=== PATIENT | female | born 1995 | race Caucasian/White ===

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

== ENCOUNTER 2019-05-25 23:49 | Emergency (ER) | payer OTHER ==
[2019-05-26 01:05] VITALS: BP 120/62; PULSE 106; TEMP 99.5; BMI 25.8
--- NOTE | 2019-05-26 01:22 | PDOC ---
*Physical Exam - Vital Signs Last Vital Signs Temp Pulse Resp BP Pulse Ox 99.5 F 106 H 19 120/62 97 05/25/19 23:55 05/25/19 23:55 05/25/19 23:55 05/25/19 23:55 05/25/19 23:55 Medical Decision Making - Medical Decision Making 05/26/19 01:22 Patient seen by the advanced practice provider under my direct supervision. Ancillary testing reviewed as necessary. I agree with plan as outlined by the advanced practice provider. *DC/Admit/Observation/Transfer Diagnosis at time of Disposition: Pharyngitis Qualifiers: Pharyngitis/tonsillitis etiology: unspecified etiology Qualified Code(s): J02.9 - Acute pharyngitis, unspecified - Discharge Dispostion Disposition: HOME Condition at time of disposition: Fair - Prescriptions Prescriptions: Amoxicillin - [Amoxicillin 500mg Capsule -] 500 mg PO BID #20 capsule - Referrals Referrals: Wiliam Galeana MD [Primary Care Provider] - Call tomorrow - Patient Instructions Printed Discharge Instructions: Sore Throat Additional Instructions: gargle with warm salty water take ibuprofen every 6 hours as needed for pain take tylenol every 4 hours as needed for pain throw away toothbrush in 3-4 days do not share cups or utensil with other Take amoxicillin as prescribed follow up with your doctor as soon as possible. Additional Instructions: Please call your personal physician to report your Emergency Department visit and to report your progress, if any. If there is no improvement in symptoms in 2 days call your physician. Return to the Emergency Department for any worsening symptoms. - Post Discharge Activity Forms/Work/School Notes: Back to Work
[2019-05-26] MEDS ORDERED: IBUPROFEN 600 MG TABLET (FP) PO ONE ×2 (01:28→01:57)
[2019-05-26] MEDS ORDERED: DEXAMETHASONE SOD PHOSPHATE 10 MG/1 ML VIAL IM ONE (01:28)
--- NOTE | 2019-05-26 01:46 | PDOC ---
History of Present Illness - General Chief Complaint: Sore Throat Stated Complaint: SORE THROAT & FEVER Time Seen by Provider: 05/26/19 01:11 History Source: Patient - History of Present Illness Initial Comments: 05/26/19 01:38 24 year old female with sore throat, chills x 2 days. " i feel like i have a fever. and my throat is swollen" denies NVD, abdominal painn urinary symptoms no pmhx Past History - Past Medical History Allergies/Adverse Reactions: Allergies Allergy/AdvReac Type Severity Reaction Status Date / Time No Known Allergies Allergy Verified 12/28/16 12:18 Home Medications: Ambulatory Orders Nitrofurantoin Monohyd/M-Cryst [Macrobid] 100 mg PO BID #10 capsule 12/28/16 Amoxicillin - [Amoxicillin 500mg Capsule -] 500 mg PO BID #20 capsule 05/26/19 Psychiatric Problems: Yes (ANXIETY) - Immunization History Immunization Up to Date: Yes - Suicide/Smoking/Psychosocial Hx Smoking History: Never smoked Number of Cigarettes Smoked Daily: 2 Information on smoking cessation initiated: No 'Breaking Loose' booklet given: 12/28/16 Hx Alcohol Use: No Drug/Substance Use Hx: No Substance Use Type: Marijuana Review of Systems - Review of Systems Able to Perform ROS?: Yes Is the patient limited Finnish proficient: No Constitutional: Yes: Fever HEENTM: Yes: Ear Pain, Throat Pain, Throat Swelling Respiratory: No: Symptoms reported, See HPI, Cough, Orthopnea, Shortness of Breath, SOB with Exertion, SOB at Rest, Stridor, Wheezing, Productive cough, Hemoptysis, Other Cardiac (ROS): No: Symptoms Reported, See HPI, Chest Pain, Edema, Irregular Heart Rate, Lightheadedness, Palpitations, Syncope, Chest Tightness, Other ABD/GI: No: Symptoms Reported, See HPI, Abdominal Distended, Abd. Pain w/ defecation, Blood Streaked Bowels, Constipated, Diarrhea, Difficulty Swallowing , Nausea, Poor Appetite, Poor Fluid Intake, Rectal Bleeding, Vomiting, Indigestion, Abdominal cramping, Tarry Stools, Other : No: Symptoms Reported, See HPI, Burning, Dysuria, Discharge, Frequency, Flank Pain, Hematuria, Incontinence, Pain, Urgency, Testicular Mass, Testicular Swelling, Lesions, Testicular Pain, Other *Physical Exam - Vital Signs Last Vital Signs Temp Pulse Resp BP Pulse Ox 99.5 F 106 H 19 120/62 97 05/25/19 23:55 05/25/19 23:55 05/25/19 23:55 05/25/19 23:55 05/25/19 23:55 - Physical Exam General Appearance: Yes: Appropriately Dressed HEENT: positive: Pharyngeal Erythema (with eexudate. no kissing tonsil) Cardiovascular: positive: Regular Rhythm, Regular Rate Gastrointestinal/Abdominal: positive: Normal Bowel Sounds, Soft Extremity: positive: Normal Capillary Refill, Normal Inspection, Normal Range of Motion Integumentary: positive: Dry, Warm Medical Decision Making - Medical Decision Making 05/26/19 03:46 A: viral pharyngitis P: rapid strep negative. will empirically treat. throat culture culture pendibng decadron *DC/Admit/Observation/Transfer Diagnosis at time of Disposition: Pharyngitis Qualifiers: Pharyngitis/tonsillitis etiology: unspecified etiology Qualified Code(s): J02.9 - Acute pharyngitis, unspecified - Discharge Dispostion Disposition: HOME Condition at time of disposition: Fair - Prescriptions Prescriptions: Amoxicillin - [Amoxicillin 500mg Capsule -] 500 mg PO BID #20 capsule - Referrals Referrals: Wiliam Galeana MD [Primary Care Provider] - Call tomorrow - Patient Instructions Printed Discharge Instructions: Sore Throat Additional Instructions: gargle with warm salty water take ibuprofen every 6 hours as needed for pain take tylenol every 4 hours as needed for pain throw away toothbrush in 3-4 days do not share cups or utensil with other Take amoxicillin as prescribed follow up with your doctor as soon as possible. Additional Instructions: Please call your personal physician to report your Emergency Department visit and to report your progress, if any. If there is no improvement in symptoms in 2 days call your physician. Return to the Emergency Department for any worsening symptoms. - Post Discharge Activity Forms/Work/School Notes: Back to Work
[2019-05-26] MEDS ORDERED: DEXAMETHASONE SOD PHOSPHATE 10 MG/1 ML VIAL ONE (01:57)
== END 2019-05-26 02:24 | disposition home or self-care (01) ==
LOC: JER 23:49
PROC: 3E023GC Introduction of Other Therapeutic Substance into Muscle, Percutaneous Approach (ICD-10-PCS; principal; 2019-05-25)
DX: J02.9 Acute pharyngitis, unspecified (principal); R50.9 Fever, unspecified
CPT/HCPCS: 87070; 87880; 96374; 99281-25; J1100

== ENCOUNTER 2022-07-11 09:25 | Inpatient (IN) | payer OTHER ==
[2022-07-11] MEDS: ELECTROLYTE-148 SOLN 1,000 ML IV SCH (10:00)
[2022-07-11] MEDS ORDERED: BETAMET ACET/BETAMET NA PH 30 MG/5 ML VIAL ONE (10:12)
[2022-07-11] MEDS ORDERED: AMPICILLIN SODIUM 2 GM VIAL ONE (10:15)
[2022-07-11] MEDS ORDERED: AMPICILLIN - 2 GM in SODIUM CHLORIDE 100 ML IVPB ONE (10:47)
[2022-07-11] MEDS ORDERED: BETAMET ACET/BETAMET NA PH 30 MG/5 ML VIAL IM ONE (10:47)
[2022-07-11 11:06] VITALS: BMI 37.1
[2022-07-11 11:13] LABS: BASO % 0.2 % (0-2.0); EOS % 1.1 % (0-4.5); HEMATOCRIT 34.5 % (32.4-45.2); HEMOGLOBIN 11.4 GM/dL (10.7-15.3); LYMPH % 23.9 % (8-40); MCH 26.2 pg (25.7-33.7); MEAN CELL VOLUME 79.4 fl (80-96); MEAN PLT VOLUME 9.3 fl (7.5-11.1); MONO % 8.7 % (3.8-10.2); NEUT % 66.1 % (42.8-82.8); PLATELET COUNT 126 10^3/uL (134-434); RBC 4.35 M/mm3 (3.60-5.2); RDW 16.3 % (11.6-15.6); WHITE BLOOD COUNT 6.6 K/mm3 (4.0-10.0)
[2022-07-11 11:28] LABS: INR 1.02 (0.83-1.09); PROTHROMBIN TIME (PATIENT) 11.7 SEC (9.7-13.0)
[2022-07-11 11:33] LABS: CALCIUM 8.9 mg/dL (8.5-10.1)
[2022-07-11 11:34] LABS: BLOOD UREA NITROGEN 9.6 mg/dL (7-18)
[2022-07-11 11:37] LABS: CREATININE 0.5 mg/dL (0.55-1.3)
[2022-07-11 11:56] LABS: SYPHILIS W/ RPR CONF NON-REACTIVE (NONREACTIVE)
[2022-07-11] MEDS ORDERED: AMPICILLIN SODIUM 1 GM VIAL ONE ×3 (14:56→23:01)
[2022-07-11] MEDS: AMPICILLIN - 1 GM in SODIUM CHLORIDE 100 ML IVPB SCH ×3 (15:00→23:00)
[2022-07-11 21:37] LABS: HIV INTERPRETATION NEGATIVE (NEGATIVE)
[2022-07-11 23:24] LABS: HIV INTERPRETATION NEGATIVE (NEGATIVE)
[2022-07-12] MEDS ORDERED: AMPICILLIN SODIUM 1 GM VIAL ONE ×4 (03:10→14:52)
[2022-07-12] MEDS: AMPICILLIN - 1 GM in SODIUM CHLORIDE 100 ML IVPB SCH ×5 (03:15→20:09)
[2022-07-12] MEDS ORDERED: BETAMET ACET/BETAMET NA PH 30 MG/5 ML VIAL IM ONE ×2 (06:30→10:48)
[2022-07-12] MEDS ORDERED: BUTORPHANOL TARTRATE 2 MG/ML VIAL IVPB ONE (06:30)
[2022-07-12] MEDS ORDERED: PROMETHAZINE HCL 25 MG/1 ML VIAL IVPB ONE ×2 (06:30→06:45)
[2022-07-12] MEDS ORDERED: BUTORPHANOL TARTRATE 2 MG/ML VIAL ONE (06:33)
[2022-07-12] MEDS ORDERED: PROMETHAZINE HCL 25 MG/1 ML VIAL ONE (06:33)
[2022-07-12] MEDS ORDERED: BUTORPHANOL TARTRATE 1 MG/ML VIAL IVPB ONE (06:45)
[2022-07-12] MEDS ORDERED: PROMETHAZINE HCL 25 MG/1 ML VIAL IVPUSH ONE (09:59)
[2022-07-12] MEDS ORDERED: BUTORPHANOL TARTRATE 1 MG/ML VIAL IVPB PRN (10:00)
[2022-07-12] MEDS ORDERED: FENTANYL/BUPIVACAINE/NS/PF - PCEA - 50 ML DISP.SYRIN EP ONE ×2 (10:08→14:15)
[2022-07-12] MEDS ORDERED: OXYTOCIN 30 UNITS in 0.9% NS 30 UNIT/500 ML INFUS.BAG IVPB SCH (10:15)
[2022-07-12] MEDS: ELECTROLYTE-148 SOLN 1,000 ML IV SCH (10:30)
[2022-07-12 10:38] LABS: BASO % 0.1 % (0-2.0); HEMATOCRIT 33.8 % (32.4-45.2); HEMOGLOBIN 10.9 GM/dL (10.7-15.3); MCH 25.6 pg (25.7-33.7); MCHC 32.3 g/dl (32.0-36.0); MEAN CELL VOLUME 79.2 fl (80-96); MEAN PLT VOLUME 9.7 fl (7.5-11.1); MONO % 3.6 % (3.8-10.2); NEUT % 86.3 % (42.8-82.8); PLATELET COUNT 144 10^3/uL (134-434); RBC 4.27 M/mm3 (3.60-5.2); RDW 16.3 % (11.6-15.6); WHITE BLOOD COUNT 9.6 K/mm3 (4.0-10.0)
[2022-07-12] MEDS ORDERED: NALOXONE HCL 0.4 MG/ML VIAL IVPUSH PRN (11:24)
[2022-07-12] MEDS ORDERED: FENTANYL/BUPIVACAINE/NS/PF - PCEA - 50 ML DISP.SYRIN EP SCH (11:30)
[2022-07-12] MEDS ORDERED: OXYTOCIN 30 UNITS in 0.9% NS 30 UNIT/500 ML INFUS.BAG IVPB ONE (13:14)
[2022-07-12] MEDS ORDERED: AMPICILLIN - 1 GM in SODIUM CHLORIDE 100 ML IVPB SCH (15:00)
[2022-07-12] MEDS ORDERED: OXYTOCIN 20 UNITS in 0.9% NS 20 UNIT/1,000 ML INFUS.BAG IV ONE (15:34)
[2022-07-12] MEDS ORDERED: METHYLERGONOVINE MALEATE 0.2 MG/1 ML AMP IM PRN (17:24)
[2022-07-12] MEDS ORDERED: WITCH HAZEL 50% (TUCKS) 40 PAD/JAR PAD TP PRN (17:24)
[2022-07-12] MEDS ORDERED: BENZOCAINE 20% 57 GM BOTTLE TP PRN (17:24)
[2022-07-12] MEDS ORDERED: IBUPROFEN 600 MG TABLET (FP) PO PRN (17:24)
[2022-07-12] MEDS ORDERED: BENZOCAINE 28 GM HEMORRHOIDAL OINTMENT TP PRN (17:24)
[2022-07-12] MEDS ORDERED: ACETAMINOPHEN 325 MG TABLET (FP) PO PRN (17:24)
[2022-07-12] MEDS ORDERED: oxyCODONE HCL 5 MG TABLET PO PRN (17:24)
[2022-07-12] MEDS ORDERED: BISACODYL 10 MG SUPP.RECT RC PRN (17:24)
[2022-07-12] MEDS ORDERED: OXYTOCIN 20 UNITS in 0.9% NS 20 UNIT/1,000 ML INFUS.BAG IV SCH (17:30)
[2022-07-12] MEDS ORDERED: FERROUS SO4 325 MG TABLET (FP) ONE (18:28)
[2022-07-12] MEDS: FERROUS SO4 325 MG TABLET (FP) PO SCH (18:28)
[2022-07-12 18:59] LABS: CORD BASE EXCESS -5.3 mmol/L (0-2); CORD HCO3 22.5 mmHg (20-29); CORD PCO2 52.9 mmHg (30-78); CORD pH 7.246 (7.14-7.44)
[2022-07-12 19:03] LABS: CORD BASE EXCESS -6.4 mmol/L (0-2); CORD HCO3 19.5 mmHg (20-29); CORD PCO2 39.8 mmHg (30-78); CORD pH 7.307 (7.14-7.44)
[2022-07-13 08:09] LABS: BASO % 0.1 % (0-2.0); EOS % 0.1 % (0-4.5); HEMATOCRIT 30.6 % (32.4-45.2); LYMPH % 15.8 % (8-40); MCHC 32.8 g/dl (32.0-36.0); MEAN CELL VOLUME 79.3 fl (80-96); MEAN PLT VOLUME 9.8 fl (7.5-11.1); MONO % 9.6 % (3.8-10.2); NEUT % 74.4 % (42.8-82.8); PLATELET COUNT 124 10^3/uL (134-434); RBC 3.86 M/mm3 (3.60-5.2); RDW 16.1 % (11.6-15.6); WHITE BLOOD COUNT 10.5 K/mm3 (4.0-10.0)
[2022-07-13] MEDS: FERROUS SO4 325 MG TABLET (FP) PO SCH ×3 (09:46→17:24)
[2022-07-13] MEDS: PRENATAL VITAMINS W/ FOLIC ACID TABLET (FP) PO SCH (09:46)
[2022-07-13] MEDS ORDERED: SENNOSIDES/DOCUSATE COMBO (SENNA PLUS) TABLET (UD) PO PRN (22:00)
[2022-07-14] MEDS: PRENATAL VITAMINS W/ FOLIC ACID TABLET (FP) PO SCH (09:29)
[2022-07-14] MEDS: FERROUS SO4 325 MG TABLET (FP) PO SCH ×3 (09:29→18:15)
[2022-07-14 10:16] VITALS: BP 111/70; PULSE 72; RESP 16; TEMP 97.8
== END 2022-07-14 19:20 | disposition home or self-care (01) | DRG 560 ==
LOC: JDEL 09:25 → JLDR 09:45 → J3W 07-12 20:13
PROVIDERS: ADMIT Obstetrics & Gynecology; ATTEND Obstetrics & Gynecology
PROC: 10E0XZZ Delivery of Products of Conception, External Approach (ICD-10-PCS; principal; 2022-07-12)
DX: O42.013 Preterm premature rupture of membranes, onset of labor within 24 hours of rupture, third trimester (principal); O70.0 First degree perineal laceration during delivery; Z3A.36 36 weeks gestation of pregnancy; Z37.0 Single live birth
CPT/HCPCS: 36415; 36600; 59409; 80048; 82803; 85025; 85610; 85730; 86780; 86850; 86900; 86901; 87389; 96372; C9803-CS; U0003; U0005

== ENCOUNTER 2024-08-22 16:25 | Inpatient (IN) | payer OTHER ==
[2024-08-22] MEDS: ELECTROLYTE-148 SOLN 1,000 ML IV SCH (16:45)
[2024-08-22] MEDS ORDERED: AMPICILLIN SODIUM 2 GM VIAL ONE (16:54)
[2024-08-22] MEDS: AMPICILLIN SODIUM 2 GM VIAL IVPB ONE (17:00)
[2024-08-22] MEDS ORDERED: OXYTOCIN 20 UNITS in 0.9% NS 20 UNIT/1,000 ML INFUS.BAG IV ONE (17:12)
[2024-08-22 17:28] VITALS: BMI 39.5
[2024-08-22 17:29] LABS: BASO % 0.1 % (0-2.0); EOS % 0.4 % (0-4.5); HEMOGLOBIN 10.7 GM/dL (10.7-15.3); LYMPH % 20.6 % (8-40); MCH 23.3 pg (25.7-33.7); MCHC 32.5 g/dl (32.0-36.0); MEAN CELL VOLUME 71.5 fl (80-96); MEAN PLT VOLUME 9.7 fl (7.5-11.1); MONO % 6.8 % (3.8-10.2); NEUT % 72.1 % (42.8-82.8); PLATELET COUNT 142 10^3/uL (134-434); RBC 4.62 M/mm3 (3.60-5.2); RDW 17.4 % (11.6-15.6); WHITE BLOOD COUNT 8.4 K/mm3 (4.0-10.0)
[2024-08-22] MEDS ORDERED: LIDOCAINE HCL 1% PRESERVATIVE FREE - 30ML VIAL ONE (17:31)
[2024-08-22 17:36] LABS: POTASSIUM 4.1 mmol/L (3.5-5.1)
[2024-08-22 17:38] LABS: CALCIUM 9.1 mg/dL (8.5-10.1)
[2024-08-22 17:39] LABS: BLOOD UREA NITROGEN 8.5 mg/dL (7-18)
[2024-08-22] MEDS ORDERED: WITCH HAZEL 50% (TUCKS) 40 PAD/JAR PAD TP PRN (17:39)
[2024-08-22] MEDS ORDERED: BENZOCAINE 28 GM HEMORRHOIDAL OINTMENT TP PRN (17:39)
[2024-08-22] MEDS ORDERED: oxyCODONE HCL 5 MG TABLET PO PRN (17:39)
[2024-08-22] MEDS ORDERED: BENZOCAINE 20% 57 GM BOTTLE TP PRN (17:39)
[2024-08-22] MEDS ORDERED: ACETAMINOPHEN 325 MG TABLET (FP) PO PRN (17:39)
[2024-08-22] MEDS ORDERED: BISACODYL 10 MG SUPP.RECT RC PRN (17:39)
[2024-08-22] MEDS ORDERED: METHYLERGONOVINE MALEATE 0.2 MG/1 ML AMP IM PRN (17:39)
[2024-08-22 17:42] LABS: CREATININE 0.5 mg/dL (0.55-1.3)
[2024-08-22 18:00] LABS: INR 0.97 (0.83-1.09)
[2024-08-22 18:01] LABS: ACTIVATED PTT 25.8 SECONDS (25.2-36.5)
[2024-08-22] MEDS: OXYTOCIN 20 UNITS in 0.9% NS 20 UNIT/1,000 ML INFUS.BAG IV SCH (18:10)
[2024-08-22 18:23] LABS: CORD BASE EXCESS -5.7 mmol/L (0-2); CORD HCO3 20.5 mmHg (20-29); CORD PCO2 42.7 mmHg (30-78); CORD pH 7.3 (7.14-7.44)
[2024-08-22 18:23] LABS: CORD BASE EXCESS -6.3 mmol/L (0-2); CORD HCO3 22.3 mmHg (20-29); CORD PCO2 56.9 mmHg (30-78); CORD pH 7.212 (7.14-7.44)
[2024-08-22 18:31] LABS: HIV INTERPRETATION NEGATIVE (NEGATIVE)
[2024-08-22] MEDS ORDERED: IBUPROFEN 600 MG TABLET (FP) PO ONE (18:49)
[2024-08-22] MEDS: IBUPROFEN 600 MG TABLET (FP) PO PRN (18:53)
[2024-08-22] MEDS: AMPICILLIN - 1 GM in SODIUM CHLORIDE 100 ML IVPB SCH (22:52)
[2024-08-23 07:34] LABS: BASO % 0.1 % (0-2.0); EOS % 0.6 % (0-4.5); HEMATOCRIT 28.5 % (32.4-45.2); HEMOGLOBIN 9.4 GM/dL (10.7-15.3); LYMPH % 29.2 % (8-40); MCH 23.6 pg (25.7-33.7); MCHC 32.9 g/dl (32.0-36.0); MEAN CELL VOLUME 71.6 fl (80-96); MEAN PLT VOLUME 10.1 fl (7.5-11.1); NEUT % 61.1 % (42.8-82.8); PLATELET COUNT 124 10^3/uL (134-434); RBC 3.98 M/mm3 (3.60-5.2); RDW 17.3 % (11.6-15.6); WHITE BLOOD COUNT 8.1 K/mm3 (4.0-10.0)
[2024-08-23] MEDS: FERROUS SO4 325 MG TABLET (FP) PO SCH (08:59)
[2024-08-23] MEDS: PRENATAL VITAMINS W/ FOLIC ACID TABLET (FP) PO SCH (10:56)
[2024-08-23] MEDS ORDERED: SENNOSIDES/DOCUSATE COMBO (SENNA PLUS) TABLET (UD) PO PRN (22:00)
[2024-08-24 11:23] VITALS: BP 107/75; PULSE 94; RESP 16; TEMP 97.9
== END 2024-08-24 12:05 | disposition home or self-care (01) | DRG 560 ==
LOC: JLDR 16:25 → J3W 21:34
PROVIDERS: ADMIT Obstetrics & Gynecology; ATTEND Obstetrics & Gynecology
PROC: 10E0XZZ Delivery of Products of Conception, External Approach (ICD-10-PCS; principal; 2024-08-22)
PROC: 0HQ9XZZ Repair Perineum Skin, External Approach (ICD-10-PCS; 2024-08-22)
DX: O70.0 First degree perineal laceration during delivery (principal); Z3A.37 37 weeks gestation of pregnancy; Z37.0 Single live birth
CPT/HCPCS: 36415; 36600; 59409; 80048; 82803; 85025; 85610; 85730; 86780; 86803; 86850; 86900; 86901; 87389